=== PATIENT | female | born 1965 | race Asian ===

== ENCOUNTER 2018-10-14 09:17 | Day surgery (SDC) | payer OTHER ==
[2018-10-14] MEDS ORDERED: MIDAZOLAM 1 MG/ML 2 ML INJ ×2 (11:39→11:40)
[2018-10-14] MEDS ORDERED: FENTAnyl 50 MCG/ML VIAL (11:39)
== END 2018-10-14 14:04 | disposition home or self-care (01) ==
LOC: GIL 09:17
DX: Z12.11 Encounter for screening for malignant neoplasm of colon (principal); K64.9 Unspecified hemorrhoids; E11.9 Type 2 diabetes mellitus without complications
CPT/HCPCS: 45378; 82962